=== PATIENT | male | born 1955 | race Caucasian/White ===

== ENCOUNTER → 2018-06-25 | Outpatient (CLI) | payer OTHER ==
--- NOTE | 2018-06-25 21:29 | MR ---
EXAMINATION TYPE: MR cspine/lspine wo con DATE OF EXAM: 06/25/2018 COMPARISON: None HISTORY: Neck and lower back pain, BUE/BLE weakness/numbness, headaches CONTRAST: Performed utilizing 0 mL intravenous Gadavist gadolinium contrast. TECHNIQUE: Multiplanar multiecho imaging on a 3.0 Catrina magnet is performed through the cervical spin e. Imaging is performed in the sagittal coronal and axial planes. Note that the C2-3 level may have a posterior fusion with minimal residual disc. Plain film correlation be recommended prior to surgical intervention. For purposes of this examination, the first normal disc level is labeled C3-C4. FINDINGS: The craniovertebral junction is normal. Vertebral body alignment is normal. Appears to b e cervical fusion of C2-C3 along its posterior aspect. Very minimal disc space remains present. No po sterior disc material is evident. C7-T1: No focal disc herniation is evident. Minimal disc bulge has anterior thecal sac contact. Ther e is severe right and mild left foraminal stenosis from uncovertebral joint hypertrophy.. C6-7: Right paracentral broad-based disc bulge is present with moderate anterior thecal sac compressi on. This has cord contact and mild cord flattening. No AP spinal canal stenosis present. Moderate to severe bilateral foraminal stenosis is present.. C5-6: Minimal disc bulge has anterior thecal sac compression. No cord contact is evident. No spinal c anal stenosis is present. There is moderate to severe bilateral foraminal narrowing. C4-5: There is a large left paracentral disc herniation with moderate to severe anterior thecal sac c ompression. Cord deformity is present. There is an AP spinal canal stenosis with the AP diameter of 0 .6 cm. There is some myelomalacia with the cervical cord increased signal on T2-weighted sequences ju st inferior to this disc herniation compressing the spinal cord.. There is severe bilateral foraminal stenosis C3-4: There is a left paracentral disc herniation with extension beyond the posterior C3 vertebral le ronald. This has milder anterior thecal sac compression posterior to the vertebral body. Moderate anteri or thecal sac compression is present. This has cord contact at the C4 superior endplate with some cor d deformity. AP spinal canal stenosis is present posterior to the disc herniation.. C2-3: Cervical fusion. No residual disc material is evident.. IMPRESSIONS: 1. Left paracentral disc herniation with severe anterior thecal sac compression, cord compression and AP spinal canal stenosis. 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 2. Large left paracentral disc herniation contributing to mild spinal canal stenosis. Disc material e xtends superiorly and has milder anterior thecal sac compression. 3. Broad-based right paracentral disc bulge with moderate anterior thecal sac compression, cord hernandez ening without spinal canal stenosis. 4. Multilevel severe foraminal stenosis due to uncovertebral joint hypertrophy EXAMINATION TYPE: MR cspine/lspine wo con DATE OF EXAM: 06/25/2018 COMPARISON: None HISTORY: Neck and lower back pain, BUE/BLE weakness/numbness, headaches CONTRAST: 0 mL intravenous Gadavist. TECHNIQUE: Multiplanar, multisequence images of the lumbar spine were acquired. FINDINGS: L5-S1: Broad-based disc bulge with anterior thecal sac flattening. No AP spinal canal stenosis presen t. Facet hypertrophy is present with mild foraminal narrowing. No posterior lateral thecal sac compre ssion is evident. L4-L5: There is a grade 1 spondylolisthesis of L4 anterior and L5. Disc uncovering is present with mo derate anterior thecal sac flattening. Severe facet hypertrophy is present with posterior lateral the odalys sac compression. This is contributing to spinal canal stenosis. L3-L4: No significant disc bulge is evident. Facet hypertrophy is present with mild posterior lateral thecal sac compression. No stenosis is present. There is severe right and mild left foraminal stenos is. L2-L3: Disc bulge is present with mild anterior thecal sac compression. Facet hypertrophy is posterio r lateral thecal sac impression. Mild spinal canal narrowing without AP spinal canal stenosis may be present. There is severe right and moderate left foraminal stenosis. L1-L2: Mild disc bulge has anterior thecal sac contact. This may extend slightly greater into the lef t paracentral region. No spinal canal stenosis is present. There is severe left and no right foramina l stenosis. T12-L1: Mild disc bulging is anterior thecal sac contact. No spinal canal stenosis cord contact or fo raminal stenosis is present. No spinal canal stenosis. No foraminal stenosis. IMPRESSION: 1. Grade 1 spondylolisthesis with disc uncovering at L4-5. In conjunction with facet hypertrophy this is contributing to spinal canal stenosis at this level. 2. Facet hypertrophy and shouldn't multilevel foraminal stenosis discussed above. 3. Mild disc bulging present through the remaining lumbar spine has mild anterior thecal sac compress ion without spinal canal stenosis.
== END | disposition home or self-care (01) ==
LOC: RADMRIMAIN 17:20
DX: M99.71 Connective tissue and disc stenosis of intervertebral foramina of cervical region (principal); M48.02 Spinal stenosis, cervical region; M43.22 Fusion of spine, cervical region; M50.21 Other cervical disc displacement, high cervical region; G95.89 Other specified diseases of spinal cord; M43.16 Spondylolisthesis, lumbar region; M48.061 Spinal stenosis, lumbar region without neurogenic claudication; M51.26 Other intervertebral disc displacement, lumbar region; M47.816 Spondylosis without myelopathy or radiculopathy, lumbar region
CPT/HCPCS: 72141; 72148

== ENCOUNTER 2019-09-20 12:08 | Day surgery (SDC) | payer OTHER ==
[2019-09-17 14:15] VITALS: BMI 33.6
[~2019-09-20 12:08] MED LIST: LACTATED RINGERS 1,000 ML IV SCH
[2019-09-20 12:29] VITALS: RESP 16; TEMP 97.1
[2019-09-20] MEDS ORDERED: LIDOCAINE 1% 20 ML VIAL (10MG/ML) FOR IV START INTRADERMA ONE (12:32)
[2019-09-20] MEDS ORDERED: PROPOFOL 10 MG/ML 20 ML VIAL IV ONE (13:42)
--- NOTE | 2019-09-20 14:24 | P.PCN ---
Date of Procedure: 09/20/19 Description of Procedure: BRIEF HISTORY: Patient is a 64-year-old pleasant male scheduled for an elective colonoscopy as a part of screening for malignant neoplasm of the colon. Reports last colonoscopy approximately 12 years ago. No family history of colon cancer, change in bowel habits or blood per rectum. PROCEDURE PERFORMED: Colonoscopy with polypectomy. PREOPERATIVE DIAGNOSIS: Screening for malignant neoplasm of the colon, last colonoscopy 12 years ago. ESTIMATED BLOOD LOSS: Minimal. IV sedation per Anesthesia. PROCEDURE: After informed consent was obtained, the patient, was brought into the endoscopy unit. IV sedation was administered by Anesthesia under continuous monitoring. Digital rectal examination was normal. Initially the Olympus CF-190 flexible video colonoscope was then inserted in the rectum, gradually advanced into the cecum without any difficulty. Careful examination was performed as the scope was gradually being withdrawn. Ileocecal valve and the appendiceal orifice were visualized and appeared normal. Prep was excellent. Mucosa of the cecum, ascen ding colon, transverse colon, descending colon, sigmoid colon, and rectum appeared normal. Small to medium-sized polyps measuring 4 mm ascending colon, 5 mm at the splenic flexure and 6 mm at the descending colon all removed with cold snare polypectomy. Retroflexion was performed in the rectum and no lesions were seen. The patient tolerated the procedure well. IMPRESSION: 3 polyps removed with cold snare polypectomy from the ascending colon, splenic flexure and descending colon. Normal-appearing colon from rectum to cecum. RECOMMENDATIONS: Findings of this examination were discussed with the patient and his girlfriend. Anticipate repeat colonoscopy in 3-5 years pending pathology from polypectomies. Okay to resume diet and medications.
[2019-09-20 14:48] VITALS: BP 142/73; PULSE 59
== END 2019-09-20 15:21 | disposition home or self-care (01) ==
LOC: ORWHC2ENDO 12:08
PROVIDERS: ATTEND Internal Medicine
DX: Z12.11 Encounter for screening for malignant neoplasm of colon (principal); D12.4 Benign neoplasm of descending colon; D12.3 Benign neoplasm of transverse colon; D12.2 Benign neoplasm of ascending colon; I10 Essential (primary) hypertension; I25.10 Atherosclerotic heart disease of native coronary artery without angina pectoris; G47.33 Obstructive sleep apnea (adult) (pediatric); E78.5 Hyperlipidemia, unspecified; Z87.891 Personal history of nicotine dependence; Z88.8 Allergy status to other drugs, medicaments and biological substances; Z79.82 Long term (current) use of aspirin; Z79.899 Other long term (current) drug therapy; Z98.890 Other specified postprocedural states; Z86.73 Personal history of transient ischemic attack (TIA), and cerebral infarction without residual deficits
CPT/HCPCS: 88305; 45385; J2704; 45380